=== PATIENT | female | born 1965 | race Caucasian/White ===

== ENCOUNTER 2017-12-08 10:56 | Emergency (ER) | payer OTHER ==
[2017-12-08 11:05] VITALS: BMI 31.4
[2017-12-08 11:07] VITALS: PULSE 66; RESP 20; TEMP 98.5; O2SAT 97
--- NOTE | 2017-12-08 12:11 | ED PDOC ---
HPI: Hypertension/Hypotension Time Seen by Provider: 12/08/17 11:15 Chief Complaint (Nursing): High Blood Pressure Chief Complaint (Provider): High Blood Pressure History Per: Registry Np (In-demand: Antonette [id number]) Onset/Duration Of Symptoms: Hrs (prior to arrival) Additional Complaint(s): Patient is a 52 y/o female with no significant past medical history who presents to the ED for evaluation of high blood pressure, onset prior to arrival. Patient reports that she was at a clinic to get a mammogram today when they noticed she had a high blood pressure and recommended she come to the ER. She denies any chest pain, shortness of breath, adominal pain, vomiting, nausea , or sweating. PMD: None provided Past Medical History Reviewed: Historical Data, Nursing Documentation, Vital Signs Vital Signs: Last Vital Signs Temp 98.5 F 12/08/17 11:05 Pulse 66 12/08/17 11:05 Resp 20 12/08/17 11:05 BP 162/89 H 12/08/17 11:05 Pulse Ox 97 12/08/17 11:05 - Medical History PMH: No Chronic Diseases - Surgical History Surgical History: No Surg Hx - Family History Family History: States: Unknown Family Hx - Social History Current smoker - smoking cessation education provided: No Alcohol: None Drugs: Denies - Home Medications Home Medications: Ambulatory Orders Medication Instructions Recorded No Known Home Med 12/08/17 - Allergies Allergies/Adverse Reactions: Allergies Allergy/AdvReac Type Severity Reaction Status Date / Time No Known Allergies Allergy Verified 12/08/17 11:22 Review of Systems ROS Statement: Except As Marked, All Systems Reviewed And Found Negative Constitutional: Negative for: Fever, Chills, Sweats Cardiovascular: Negative for: Chest Pain Respiratory: Negative for: Shortness of Breath Gastrointestinal: Negative for: Nausea, Vomiting, Abdominal Pain Neurological: Negative for: Dizziness Physical Exam - Reviewed Nursing Documentation Reviewed: Yes Vital Signs Reviewed: Yes - Physical Exam Appears: Positive for: Non-toxic, No Acute Distress Head Exam: Positive for: ATRAUMATIC, NORMOCEPHALIC Skin: Positive for: Normal Color, Warm, Dry Neck: Positive for: Normal, Painless ROM, Supple Cardiovascular/Chest: Positive for: Regular Rate, Rhythm. Negative for: Murmur Respiratory: Positive for: Normal Breath Sounds. Negative for: Respiratory Distress Gastrointestinal/Abdominal: Positive for: Normal Exam, Soft. Negative for: Tenderness Back: Positive for: Normal Inspection. Negative for: L CVA Tenderness, R CVA Tenderness, Vertebral Tenderness Extremity: Positive for: Normal ROM. Negative for: Pedal Edema, Deformity Neurologic/Psych: Positive for: Alert, Oriented. Negative for: Motor/Sensory Deficits - ECG O2 Sat by Pulse Oximetry: 97 (RA) Pulse Ox Interpretation: Normal Medical Decision Making Medical Decision Making: Time: 12:10 Initial Plan: --Instructed patient to follow up with clinic bp improved 139/90s pt feels fine ----- Scribe Attestation: Documented by Al Jaquez, acting as a scribe for Nate Bianchi MD Provider Scribe Attestation: All medical record entries made by the Scribe were at my direction and personally dictated by me. I have reviewed the chart and agree that the record accurately reflects my personal performance of the history, physical exam, medical decision making, and the department course for this patient. I have also personally directed, reviewed, and agree with the discharge instructions and disposition. Disposition - Clinical Impression Clinical Impression: Abnormal blood pressure - Patient ED Disposition Is Patient to be Admitted: No Counseled Patient/Family Regarding: Studies Performed, Diagnosis, Need For Followup - Disposition Referrals: [facility] [Outside] [facility] [Outside] Disposition: Routine/Home Disposition Time: 13:00 Condition: IMPROVED Additional Instructions: follow up in clinic within one week return to the ED with any worsening or concerning symptoms Instructions: High Blood Pressure (DC) Forms: [employer] (Mozambican), [employer] (Tristanian) Print Language: BOLIVIAN
[2017-12-08 12:40] VITALS: BP 139/95
== END 2017-12-08 12:40 | disposition home or self-care (01) ==
LOC: H.ER 10:56
DX: I10 Essential (primary) hypertension (principal)